=== PATIENT | male | born 1945 | race Caucasian/White ===

== ENCOUNTER 2016-12-25 10:39 | Observation (INO) | payer OTHER ==
--- NOTE | 2016-12-25 11:06 | CPEKG ---
Heart Rate: 64 RR Interval: 938 P-R Interval: 160 QRSD Interval: 88 QT Interval: 416 QTC Interval: 430 P [place]: 15 QRS [place]: -18 T Wave [place]: 7 EKG Severity - OTHERWISE NORMAL ECG - EKG Impression: SINUS RHYTHM EKG Impression: BORDERLINE LEFT AXIS DEVIATION Electronically Signed By: Gisselle Abreu 25-Dec-2016 18:42:08
[2016-12-25 11:14] LABS: % IMMATURE GRANULYOCYTES 0.4 % (0.0-1.1); ABSOLUTE IMMATURE GRANULOCYTES 0.03 10^3/uL (0.00-0.10); ADD DIFF? NO; ADD MORPH? NO; ADD SCAN? NO; ATYPICAL LYMPHOCYTE FLAG 0 (0-99); FRAGMENT RBC FLAG 0 (0-99); HEMATOCRIT 48.3 % (40.0-51.0); LEFT SHIFT FLG 0 (0-99); LIPEMIA HEMOLYSIS FLAG 90 (0-99); MEAN CELL HEMOGLOBIN 31.3 pg (27.9-34.1); MEAN CELL HEMOGLOBIN CONCENTR. 35.2 g/dL (32.4-36.7); MEAN CELL VOLUME 88.8 fL (81.5-99.8); MEAN PLATELET VOLUME 10.2 fL (8.7-11.7); PLATELET CLUMPS FLAG 0 (0-99); PLATELET COUNT 182 10^3/uL (150-400); RED BLOOD CELL COUNT 5.44 10^6/uL (4.40-6.38); RED CELL DISTRIBUTION WIDTH 13.1 % (11.5-15.2)
[2016-12-25 11:33] LABS: ANION GAP 11 mEq/L (8-16); CALCIUM 9.9 mg/dL (8.5-10.4); CARBON DIOXIDE 25 mEq/l (22-31); CHLORIDE 101 mEq/L (97-110); CREATININE 1.1 mg/dL (0.7-1.3); GLOMERULAR FILTRATION RATE > 60; GLUCOSE 176 mg/dL (70-100); POTASSIUM 3.9 mEq/L (3.5-5.2); SODIUM 137 mEq/L (134-144)
[2016-12-25 11:43] LABS: TROPONIN I < 0.012 ng/mL (0.000-0.034)
--- NOTE | 2016-12-25 12:13 | EDPHY ---
H & P Stated Complaint: L sided chest tightness off&on x 2 wks;similiar prior to stent placement HPI/ROS: CHIEF COMPLAINT: Chest pressure HISTORY OF PRESENT ILLNESS: The patient is a 71 y/o male arriving with his complaining of "light, constant" chest pressure for the last two weeks. He has a history of CAD, hypertension, and hypercholesterolemia. He had similar symptoms prior to getting his two cardiac stents 7 years ago; he did not have an [place] at that time. He has been quite active over the last few weeks and attributed his symptoms to muscle soreness. His symptoms have not worsened with exertion. He feels better now. His last stress test was in 2010 for angina and it was normal. He also notes he tripped on the stairs last night and caught himself with his left hand. He thinks he sprained his hand and denies weakness or numbness. REVIEW OF SYSTEMS: A ten point review of systems was performed and is negative with the exception of the items mentioned in the HPI. Past medical history: TIA, CAD, melanoma, hypertension, hypercholesterolemia Past surgical history: Cardiac stents placed 2009. Family history: Father and brothers with cardiac disease, one brother with diabetes Social history: at bedside. Former smoker, quit in 1980. Rare alcohol use. 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 PCP: Dr. Yost. General Appearance: Alert. Vital signs reviewed. BP 172/100. Eyes: Pupils equal and round, no conjunctival injection, no discharge. Anicteric. ENT, Mouth: Mucous membranes are moist, no oropharyngeal erythema or edema. Neck: No lymphadenopathy, supple. No JVD. Respiratory: Lungs are clear to auscultation; no wheezes, rales, or rhonchi. Cardiovascular: Regular rate and rhythm; no murmur, rub, or gallop. Gastrointestinal: Abdomen is soft and nontender, no masses or organomegaly, bowel sounds normal. Skin: Warm and dry, no rashes on exposed skin, normal color. Back: Nontender to palpation over the thoracolumbar spine. No CVAT. Extremities: No lower extremity edema, no calf tenderness or swelling. Neurological: Alert and oriented. Moving all four extremities easily and equally. Psychiatric: Normal affect. - Personal History Current Tetanus Diphtheria and Acellular Pertussis (TDAP): Yes - Medical/Surgical History Hx Cardiac Disease: Yes Other PMH: 2010 card cath w/stents - Social History Smoking Status: Former smoker Constitutional: Initial Vital Signs Temperature (C) 37 C 12/25/16 10:40 Heart Rate 66 12/25/16 10:40 Respiratory Rate 18 12/25/16 10:40 Blood Pressure 172/100 H 12/25/16 10:40 O2 Sat (%) 97 12/25/16 10:40 O2 Delivery Mode Room Air O2 (L/minute) 37.2 Allergies/Adverse Reactions: Sulfa (Sulfonamide Antibiotics) Allergy (Verified 12/25/16 10:48) Home Medications: Medication Instructions Recorded Aspirin [Aspirin 325 mg (*)] 325 mg PO HS 12/25/16 Clopidogrel Bisulfate [Plavix (*)] 75 mg PO HS 12/25/16 Fluorouracil [Efudex] 1 sarthak TP DAILY PRN 12/25/16 Herbals/Supplements -Info Only 1 ea PO DAILY 12/25/16 Lisinopril [Zestril 20 mg (*)] 20 mg PO HS 12/25/16 Lisinopril/Hctz 20/12.5MG 1 ea PO DAILY 12/25/16 [Zestoretic/Prinzide 20/12.5MG (*)] Multivitamins [Multivitamin (*)] 1 each PO HS 12/25/16 Pravastatin Sodium 40 mg PO DAILY 12/25/16 Metoprolol Succinate Xr [Toprol Xl 50 mg PO DAILY #30 tab 12/26/16 50 mg (*)] Medical Decision Making - Diagnostics Imaging: Discussed imaging studies w/ videogame designer Radiologist, I viewed and interpreted images myself ED Course/Re-evaluation: IV established. Labs drawn. Patient placed on comb tender. Chest x-ray ordered. The 12 lead EKG was interpreted by myself. See hard copy and/or "tracemaster" electronic copy for interpretation. No acute ischemic changes. Sinus rhythm. Troponin is negative in the setting of 2 weeks of chest pain that is not exacerbated by exertion. Initial troponin normal. CXR without acute pulmonary disease or explanation of his pain. Although his pain is atypical, I am recommending admission for serial enzymes and probably stress testing (which he has not had recently), given his history of CAD/stenting. Hypertensive at triage with improving BP readings during his ED stay. 1345: Spoke with hospitalist service. Dr. Sandoval accepts admission. Differential Diagnosis: DDX of chest pain considered including but not limited to ACS, pneumonia or other infection, pericarditis, PE, pneumothorax, costochondritis, musculoskeletal etiology. - Data Points Laboratory Results: Laboratory Results 12/25/16 11:05 12/25/16 11:05 Medications Given: Discontinued Medications Aspirin (Aspirin) 325 mg PO DAILY COUNT INCLUDES THE [facility] Stop: 06/24/17 08:59 Last Admin: 12/26/16 08:15 Dose: Not Given Atenolol (Tenormin) 25 mg PO DAILY PRABHAKAR Stop: 06/24/17 08:59 Last Admin: 12/26/16 08:15 Dose: Not Given Clopidogrel Bisulfate (Plavix) 75 mg PO DAILY PRABHAKAR Stop: 06/24/17 08:59 Last Admin: 12/26/16 08:17 Dose: Not Given Enoxaparin Sodium (Lovenox) 40 mg SC DAILY PRABHAKAR Stop: 06/24/17 08:59 Last Admin: 12/26/16 08:14 Dose: 40 mg Lisinopril/HCTZ (Zestoretic) 1 ea PO DAILY PRABHAKAR Stop: 06/24/17 08:59 Last Admin: 12/26/16 08:16 Dose: 1 ea Influenza Virus Vaccine Quadrival (Fluarix Quad [id number]) 0.5 ml IM .ONCE ONE Stop: 12/26/16 09:40 Last Admin: 12/26/16 12:32 Dose: 0.5 ml Lisinopril (Zestril) 20 mg PO DAILY PRABHAKAR Stop: 06/24/17 08:59 Last Admin: 12/26/16 08:14 Dose: Not Given Multivitamins (Tab-A-Rose) 1 each PO DAILY PRABHAKAR Stop: 06/24/17 08:59 Last Admin: 12/26/16 08:17 Dose: Not Given Pravastatin Sodium (Pravachol) 40 mg PO DAILY PRABHAKAR Stop: 06/24/17 08:59 Last Admin: 12/26/16 08:14 Dose: Not Given Departure - Departure Disposition: [facility] Inpatient Acute Clinical Impression: Chest pain Qualifiers: Chest pain type: other chest pain Qualified Code(s): R07.89 - Other chest pain Condition: Good Report Scribed for: Gisselle Abreu Report Scribed by: Sangeeta Lugo Date of Report: 12/25/16 Time of Report: 12:26 Physician Review and Approval Statement: 12/25/16 12:13 Portions of this note were transcribed by the medical oncologist. I, Dr. Gisselle Abreu, personally performed the history, physical exam, and medical decision- making; and confirmed the accuracy of the information in the transcribed note.
[2016-12-25 13:03] VITALS: RESP 16
[2016-12-25] MEDS ORDERED: ACETAMINOPHEN 325 MG TAB PO PRN (14:23)
[2016-12-25] MEDS ORDERED: ONDANSETRON 4 MG/2 ML VIAL IVP PRN (14:23)
[2016-12-25] MEDS ORDERED: FLUOROURACIL TP PRN ×2 (17:28→17:37)
--- NOTE | 2016-12-25 17:35 | HOSPPROG ---
Hospitalist Progress Note Assessment/Plan: HISTORY AND PHYSICAL CC: Chest pain HISTORY: The patient for 2 weeks now has had a fairly steadily constantly present pressure in the upper sternal area. Is not necessarily aggravated by activities, position changes or anything else that he can notice. He feels that it is similar in nature and location to angina that he had before having 2 stents placed in 2009. He apparently did not have infarction at that time. He has not had heart failure in the past and at this point has had no recent symptoms to suggest heart failure or arrhythmia. There is no pleuritic pains no leg swelling no orthopnea. He has had no fevers or cough and is not short of breath. He has been very compliant with aspirin, Plavix, and statin medications and is on antihypertensive. He has been moderately active recently primarily moving house so she has been carrying a lot of fairly heavy boxes in and out of house is up and down stairs and this is not led to any particular anginal-type symptoms other than what is mentioned above, and again his presenting symptom is constantly present and not aggravated by any of this activity. 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 2nd was a nurse at the [employer] [facility] but they have moved back here from [place]. He originally lived here from age 17 until his divorce little while back and then met his in [place] while he was working there. MEDICATIONS: The patients list has been reconciled by our clinical pharmacist in the EMR. I have reviewed the list and ordered appropriate medicines. PHYSICAL EXAMINATION: Vital Signs: Stable without fever Manager Beverage: Sinus rhythm Examination: General: alert, oriented, good mentation, relaxed Skin: warm, dry, good color, no rash HEENT: normal Neck: no mass or jvd Resps: relaxed Lungs: clear breath sounds Heart: regular, no murmur Abdomen: soft, nondistended, nontender, +BS, no mass Upper Extremities: normal Lower Extremities: no edema, warm No Bleeding or bruising Neurologic: normal speech/language, normal blood splatter analyst, no focal weakness IV site: looks normal LABORATORY DATA: 1st troponin normal RADIOLOGY STUDIES: Chest x-ray done in the ER, my interpretation of images: Normal chest x-ray with no heart failure 12 LEAD EKG: My interpretation 12 lead EKG in the ER: Sinus rhythm with no signs of ischemia or conduction abnormality ASSESSMENT: -chest pain similar in nature and location to his previous angina in a patient with known coronary disease and stents. This pain having been present constantly for 2 weeks somewhat atypical and with a normal EKG and troponin is unlikely to actually represent heart disease particularly without heart failure at this time. However he does have high risk and will want to do a rule out RI and risk stratification. If all seem stable will plan on a provocative stress test with nuclear imaging tomorrow. The patient has been seen by Dr. Galvez and I reviewed the case with Dr. Galvez as well as Dr. Abreu -continue his current anti-platelet antihypertensive and statin treatments Objective: Vital Signs Temp Pulse Resp BP Pulse Ox 36.6 C 61 16 143/83 H 95 12/25/16 16:05 12/25/16 16:05 12/25/16 16:05 12/25/16 16:05 12/25/16 16:05 ICD10 Worksheet Patient Problems: Problems Problem Status Onset Chest pain Acute
--- NOTE | 2016-12-25 19:55 | GCON ---
[f rep st] CONSULTATION CARDIOLOGY CONSULTATION DATE OF CONSULTATION: 12/25/2016 REFERRING PHYSICIAN: Albert Sandoval MD HISTORY OF PRESENT ILLNESS: The patient is a 71-year-old male who has a history of CAD and a prior t wo-vessel PCI procedure performed in [place], [place] in August of 2009. He has not had any local C ardiology followup. He presents to the emergency room with a 2-week history of a very light, central chest pressure sensation. There is no radiation of the discomfort. It is not exacerbated by physic al activity. He has not had any symptoms suggestive of CHF or arrhythmias. In the emergency room, his ECG did not demonstrate any acute findings. His 1st troponin is normal. PAST CARDIAC HISTORY: He has a history of CAD and underwent PCI of the mid LAD and mid RCA at [facility] in [place], [place] in August of 2009. He has never had a myocardial infarction. He says that the symptoms prior to his stent procedure were somewhat similar to what he is experienc ing now. CARDIAC RISK PROFILE: Hypertension, hyperlipidemia and borderline type 2 diabetes. He has not had a ny type of cardiac testing in several years. PAST MEDICAL HISTORY: In addition to the issues mentioned above, he has a history of osteoarthritis and BPH. PAST SURGICAL HISTORY: FAMILY HISTORY: Noncontributory. MEDICATIONS: Please refer to the electronic record. Home medications include aspirin, atenolol, CoQ 10, lisinopril and pravastatin. ALLERGIES: Penicillin and sulfa. SOCIAL HISTORY: He is . He is retired. He is a former smoker, having stopped in 1980. He c onsumes 2-3 alcoholic beverages per week. He is typically very physically active. REVIEW OF SYSTEMS: Apart from the symptoms that prompted this hospital encounter, a 10-point review was negative. PHYSICAL EXAMINATION: VITAL SIGNS: Heart rate 62 with sinus rhythm on the monitor. Blood pressure 140/86. GENERAL: Well developed, well-nourished male in no acute distress. He is alert and oriente d x3. HEAD AND NECK: No scleral icterus. Mucous membranes moist. Carotid pulses 2+ without bruits . There is no JVD. CHEST: Lung sorensen clear to auscultation bilaterally. CARDIAC: Regular rate a nd rhythm with a normal S1, S2. There is no murmur or gallop. ABDOMEN: Soft, nontender, nondistend ed, with normal bowel sounds. EXTREMITIES: 2+ pulses and no peripheral edema. ECG: His ECG demonstrates normal sinus rhythm. There are no Q-waves or conduction system disturbanc es. There are no ST-T wave abnormalities suggestive of ischemia. LABORATORY STUDIES: His initial troponin is less than 0.012. Sodium 137, potassium 3.9, BUN and cre atinine 27 and 1.1. IMPRESSION: This is a 71-year-old male with history of coronary artery disease and prior PCI procedu res involving the left anterior descending artery and right coronary artery. He presents with a slig ht chest pressure sensation which is similar to what he experienced prior to his stent procedures. H owever, it is atypical in that it has been continuously present for almost 2 weeks. His 1st troponin is negative and his ECG is normal. There is no evidence for congestive heart failure. PLAN: The patient is being admitted for observation and serial troponins. Pending his clinical cour se overnight, it is likely that he will undergo stress testing tomorrow. However, if he has escalati ng symptoms or any elevation of his troponin, an invasive strategy will be preferred. /[id number]/MODL
[2016-12-26] MEDS ORDERED: LISINOPRIL 20 MG TAB PO SCH ×2 (09:00→21:00)
[2016-12-26] MEDS ORDERED: CLOPIDOGREL BISULFATE 75 MG TAB PO SCH ×2 (09:00→21:00)
[2016-12-26] MEDS ORDERED: MULTIVITAMINS 1 EACH TAB PO SCH ×2 (09:00→21:00)
[2016-12-26] MEDS ORDERED: PRAVASTATIN SODIUM 40 MG TAB PO SCH ×2 (09:00→21:00)
[2016-12-26] MEDS ORDERED: ASPIRIN 325 MG TAB PO SCH ×2 (09:00→21:00)
[2016-12-26] MEDS ORDERED: LISINOPRIL/HCTZ 20/12.5MG 1 EA TAB PO SCH (09:00)
[2016-12-26] MEDS ORDERED: ENOXAPARIN 40 MG/0.4 ML SYR SC SCH (09:00)
[2016-12-26] MEDS ORDERED: ATENOLOL 25 MG TAB PO SCH ×2 (09:00→21:00)
[2016-12-26] MEDS ORDERED: FLU VACC QS 2017-18 (3YR+)/PF 0.5 ML SYR (FLUARIX QUAD) IM ONE (09:39)
--- NOTE | 2016-12-26 12:21 | PDCARST ---
CAR Stress Test Results Type of Stress Test: Nuclear TM stress test Indication: chest pain/CAD Description of Procedure: Exercise time: 9 min. This is equivalent to: 10 METS. Resting heart rate: 68 bpm. Resting blood pressure: 172/100 mmHg. Resting O2 saturation: 94 %. Peak heart rate: 140 bpm. This is 93 % of age predicted maximum heart rate response. Peak blood pressure: 200/ 80 mmHg. Exercise O2: 96 %. Arrhythmias: Single PVCs, 4-beat VT, 6-beat VT all in stage 1. Reason for termination: The test was stopped due to maximal effort. Symptoms: The patient had 2-3/10 chest pressure at rest that did not worsen with exertion. STRESS TEST ANALYSIS. Baseline ECG: SR with diffuse ST- T w abn. Stress ECG: SR with 1 mm flat STD. exercise induced ischemic ECG changes: Yes. Rhythm: 4- and 6-beat VT with exertion. Blood pressure: Resting hypertension with normal response to exercise. Exercise tolerance: The patient has normal exercise tolerance adjusted for age and gender. Symptoms: No exercise induced symptoms. Impression: Indeterminate stress test due to baseline ECG abnormalities. Conclusion: Await nuclear images.
--- NOTE | 2016-12-26 14:49 | ASMTCMCOM ---
CM Note CM Note Notes: 12/26/2016 Case Management Note: Reviewed chart, discussed w/ RN. No Case Management d/c needs identified d/t pt age, marital status and activity levels prior to admission. No therapy evals ordered Case Management d/c poc: Home independent w/family support when medically stable. Case Management available if needs change. Date Signed: 12/26/2016 02:48 PM Electronically Signed By:Miranda Holder RN
[2016-12-26 15:27] VITALS: BP 143/83; PULSE 72; TEMP 98.9; O2SAT 93
--- NOTE | 2016-12-26 17:57 | ECHO ---
[email or web address] [address] [address] Main: [phone] Fax: Transthoracic Echocardiogram Name: ERI HUYNH MR#: [id number] Study Date: 12/26/2016 Study Time: 02:36 PM Date of : 1945 Age: 71 year(s) Height: ( ) Weight: ( ) BSA: Gender: Male Examination: Echo Indication: Coronary artery disease Image Quality: Contrast: Requested by: Emilio Galvez BP: 142 mmHg/80 mmHg Heart Rate: Rhythm: Normal sinus rhythm Indication: Coronary artery disease Procedure Staff Human Resources Professional: Nola Lucas Reading Physician: Emilio Galvez Conclusions: Normal global systolic LV function (EF 63 %). The posterior mitral leaflet is thickened and calcified with reduced mobility. Trivial to mild mitral regurgitation. Measurements: Chambers Valvular Assessment AV/MV Valvular Assessment TV/PV Normal Normal Normal Name Value Range Name Value Range Name Value Range Ao Daja (MM): 2.8 cm (2.2 cm-3.7 AV Vmax: 1.38 m/s (1 m/s-1.7 TR Vmax: 2.51 mm/s ( - ) cm) m/s) TR PGmax: 25 mmHg ( - ) IVSd (2D): 1.0 cm (0.6 cm-1.1 AV maxP mmHg ( - ) syst. PAP: 30 mmHg ( - ) cm) LVOT Vmax: 0.85 m/s (0.7 m/s-1.1 PV Vmax: 0.80 cm/s (0.6 m/s-0.9 LVDd (2D): 4.3 cm (4.2 cm-5.9 m/s) m/s) cm) MV E Vmax: 0.71 cm/s ( - ) PV PGmax: 3 mmHg ( - ) LVDs (2D): 2.8 cm (2.1 cm-4 MV A Vmax: 0.82 cm/s ( - ) cm) MV E/A: 0.87 ( - ) LVPWd (2D): 0.9 cm (0.6 cm-1 cm) LVEF (BP): 63 % (>=55 %) RVDd(2D): 3.2 cm (1.9 cm-3.8 cmmm) Continued Measurements: Chambers Valvular Assessment AV/MV Valvular Assessment TV/PV Name Value Name Value Name Value LA Area: 17.9 cm2 MV DecTime: 222 CVP (est.): 5 LA Volume: 47 ml MV E' Septal: 0.04 m/s MV E/E' Septal: 17.80 MV E/E' Lateral: 10.90 Patient: ERI HUYNH Study Date: 12/26/2016 Page 1 of 2 02:36 PM Additional Vessels Name Value Ao Ascendin.2 cm Findings: Left Ventricle: Normal size left ventricle. Mild concentric LV hypertrophy. Normal global systolic LV function (EF 63 %). All scored wall segments are normal. Right Ventricle: Normal size right ventricle. Normal RV function. Left Atrium: The left atrium is normal in size. Right Atrium: The right atrium is normal in size. Mitral Valve: The posterior mitral leaflet is thickened and calcified with reduced mobility. Trivial to mild mitral regurgitation. Aortic Valve: The aortic valve is normal in appearance. There is no aortic valve regurgitation. Tricuspid Valve: The tricuspid valve appears normal. Mild tricuspid regurgitation is present. Pulmonic Valve: Pulmonary valve not well visualized. Pericardium: No pericardial effusion. (No Signature Object) Wall Motion Scores -1 - Not Scored, 0 - Unknown, 1 - Normal or hyperkinesia, 2 - Hypokinesia, 3 - Akinesia, 4 - Dyskinesia, 5 - Aneurysm Patient: ERI HUYNH Study Date: 12/26/2016 Page 2 of 2 02:36 PM [id number]
--- NOTE | 2016-12-26 18:55 | PDDCSUM ---
Discharge Summary Discharge Summary: DISCHARGE DIAGNOSES: -chest pain, ruled out for myocardial infarction, uncertain etiology -wide complex nonsustained tachycardia on monitor worker -unremarkable echocardiogram and myocardial perfusion imaging with stress test CONSULTANTS: Dr. Emilio Galvez PROCEDURES: Echocardiogram Treadmill exercise stress test with myocardial perfusion imaging HOSPITAL COURSE SUMMARY: This patient has a previous history of coronary disease with stents 7 years ago came into the hospital with 2 weeks of continuous pressure in the upper chest area. There is no evidence of ischemia, injury, heart failure, or arrhythmia at the time of presentation. He rule out for myocardial infarction. He had normal results on the treadmill stress test with myocardial perfusion imaging showing no abnormalities. Initially all of his cardiac rhythms were sinus but eventually during monitoring he did have some nonsustained wide complex tachycardia of uncertain source. An echocardiogram was done which did not show any particular abnormality. It is recommended this time that the patient can be discharged home but he will follow up in Dr. Galvez clinic and will have outpatient cardiac monitoring to further assess his arrhythmia as described Because of the wide complex tachycardia Dr. Galvez also has recommended changing his beta-pacheco from atenolol to metoprolol which we have ordered PENDING TEST RESULTS: None MEDICATION CHANGES: Atenolol discontinued and metoprolol 50 mg XL per day ordered FOLLOW-UP PLAN: With Dr. Emilio Galvez at [facility] Outpatient cardiac monitoring will be arranged Greater than 35 minutes bedside and care coordination time today
--- NOTE | 2016-12-26 19:14 | PDCARPN ---
Cardiology Progress Note Chief Complaint: No complaints. Assessment/Plan: 71-year-old male with a history of CAD and two-vessel PCI of the LAD and RCA in 2009. He was admitted yesterday for a persistent episode of mild chest pressure. Has ruled out for an acute coronary syndrome/[place]. No signs or symptoms of CHF. Underwent an exercise treadmill test with nuclear imaging today. Exercised 9 minutes without chest pain or ECG changes. Normal nuclear perfusion images without evidence of ischemia or infarction. ETT did demonstrate short salvos of nonsustained VT during stage I. Review of telemetry overnight demonstrates multiple episodes of nonsustained VT. Echocardiography demonstrates normal left ventricular systolic function and age related valvular changes without hemodynamically significant valvular dysfunction. Recommendations: - Stop atenolol 25 mg QD. - Replace with metoprolol succinate 50 mg QD - The office staff told her heart has been instructed to contact the patient to arrange for a 24 hour Holter monitor and a followup appointment with me. - OK fo rdischarge. 12/26/16 19:08 Reviewed/Discussed With: hospitalist Objective: Vital Signs (8 Hrs) Temp Pulse Resp BP Pulse Ox 12/26/16 15:26 37.2 C 72 16 143/83 H 93 Intake/Output (24 Hrs) 12/25/16 12/26/16 12/27/16 05:59 05:59 05:59 Intake Total 300 Balance 300 Intake: Oral (ml) 300 Other: Weight 83.4 kg Number of Voids Toilet 2 Result Diagrams: 12/25/16 11:05 12/25/16 11:05 Cardiac Labs: Cardiac Lab Results (72 Hrs) 12/26/16 12/25/16 03:47 19:07 Troponin I < 0.012 < 0.012 - Physical Exam Constitutional: WDWN, no apparent distress Eyes: anicteric sclera Ears, Nose, Mouth, Throat: moist mucous membranes Cardiovascular: regular rate and rhythm, no murmurs, no rubs, no gallops Respiratory: clear to auscultate bilat Gastrointestinal: normoactive bowel sounds, no tenderness, no masses Skin: no rashes, no edema Neurologic: AAOx3 Psychiatric: not anxious ICD10 Worksheet Patient Problems: Problems Problem Status Onset Chest pain Acute
[2016-12-27] MEDS ORDERED: METOPROLOL SUCCINATE XR 50 MG TAB PO SCH (09:00)
--- NOTE | 2016-12-27 15:40 | ASDISCHSUM ---
Discharge Information Plan Status:Home with No Needs Medically Cleared to Leave:12/26/2016 Discharge Date:12/26/2016 05:56 PM CM D/C Disposition:Home, Routine, Self-Care ADT D/C Disposition:Home, Routine, Self-Care Projected Discharge Date:12/26/2016 12:00 AM Transportation at D/C:Friend Discharge Delay Reason: Follow-Up Date:12/26/2016 12:00 AM Discharge Slot: Final Diagnosis: Placement Information Patient Contact Information Contact Name:KRYSTAL Relationship: Address:[id number] [place] [address] Work Phone: City:[place] Alternate Phone: [facility]/Zip Code:[place] [address] Email: Financial Information Financial Class: Primary Plan Desc:MEDICARE OUTPATIENT Primary Plan Number:[id number] Secondary Plan Desc: Secondary Plan Number:[id number] Assessment Information [facility] CM Progress Note CM Note CM Note Notes: 12/26/2016 Case Management Note: Reviewed chart, discussed w/ RN. No Case Management d/c needs identified d/t pt age, marital status and activity levels prior to admission. No therapy evals ordered Case Management d/c poc: Home independent w/family support when medically stable. Case Management available if needs change. Date Signed: 12/26/2016 02:48 PM Electronically Signed By:Miranda Holder RN Intervention Information Intervention Type:*DIXIE-Signed Date of Service:12/26/2016 10:12 AM Patient Type:Observation Staff Member:Maggie Castro Hours: Discipline: Severity: Comment:
== END 2016-12-26 17:56 | disposition home or self-care (01) ==
LOC: F2W 15:30
PROVIDERS: ADMIT Internal Medicine; ATTEND Internal Medicine
DX: R07.9 Chest pain, unspecified (principal); R00.0 Tachycardia, unspecified; I25.10 Atherosclerotic heart disease of native coronary artery without angina pectoris; I10 Essential (primary) hypertension; E78.5 Hyperlipidemia, unspecified; N40.0 Benign prostatic hyperplasia without lower urinary tract symptoms; Z87.891 Personal history of nicotine dependence; Z85.820 Personal history of malignant melanoma of skin; Z86.73 Personal history of transient ischemic attack (TIA), and cerebral infarction without residual deficits; Z82.49 Family history of ischemic heart disease and other diseases of the circulatory system; Z95.5 Presence of coronary angioplasty implant and graft; Z88.0 Allergy status to penicillin; Z88.2 Allergy status to sulfonamides; Z23 Encounter for immunization
CPT/HCPCS: 71020; 78452; 90686; 93005; 93017; 93306; A9500; G0008; G0378; J1650

== ENCOUNTER → 2017-01-09 | Outpatient (CLI) | payer OTHER | LOC: BHFA 13:30 | PROVIDERS: ATTEND Internal Medicine Interventional Cardiology | DX: I47.2 Ventricular tachycardia (principal) ==

== ENCOUNTER → 2018-02-06 | Outpatient (CLI) | payer OTHER | LOC: BHFA 13:00 | PROVIDERS: ATTEND Internal Medicine Interventional Cardiology | DX: I25.10 Atherosclerotic heart disease of native coronary artery without angina pectoris (principal); I10 Essential (primary) hypertension; E78.00 Pure hypercholesterolemia, unspecified | CPT/HCPCS: 93005-PO ==